=== PATIENT | female | born 1970 | race Caucasian/White ===

== ENCOUNTER 2017-10-14 18:47 | Emergency (ER) | payer BC, OTHER ==
[2017-10-14] MEDS ORDERED: Ibuprofen TAB* 800 MG PO ONE (19:28)
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
[2017-10-14 20:54] VITALS: BP 125/107
== END 2017-10-14 20:40 | disposition home or self-care (01) ==
LOC: ED 18:47
DX: S13.4XXA Sprain of ligaments of cervical spine, initial encounter (principal); V43.52XA Car driver injured in collision with other type car in traffic accident, initial encounter; Y92.410 Unspecified street and highway as the place of occurrence of the external cause; F17.200 Nicotine dependence, unspecified, uncomplicated; M47.812 Spondylosis without myelopathy or radiculopathy, cervical region; Z88.4 Allergy status to anesthetic agent
CPT/HCPCS: 70450; 71045; 72125; 99283; A9270-GY